=== PATIENT | male | born 2000 | race Caucasian/White ===

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

== ENCOUNTER 2019-10-12 09:46 | Emergency (ER) | payer SELFPAY ==
[2019-10-12 10:35] LABS: Absolute Lymphocytes (CBC) 2.6 K/uL (0.7-4.9); Basophils % 0.3 % (0-1.3); Hematocrit 45.4 % (39.6-49.0); Lymphocytes % 26.1 % (15.3-44.8); MPV 8.7 fL (7.6-11.3); RBC Red Blood Cell Count 5.71 M/uL (4.33-5.43)
[2019-10-12 10:54] LABS: Albumin 3.8 g/dL (3.4-5.0); Bilirubin Direct 0.2 mg/dL (0-0.2); Bilirubin Total 0.9 mg/dL (0.2-1.0); Potassium 4.3 mmol/L (3.5-5.1); Protein, Total 7.7 g/dL (6.4-8.2)
--- NOTE | 2019-10-12 10:58 | ER ---
Nurse's Notes [facility] Name: Carlos Eduardo Aguilar Age: 18 yrs Sex: Male : 2000 Arrival Date: 10/12/2019 Time: 09:48 Bed 20 Private MD: Diagnosis: Diarrhea, unspecified Presentation: 10/11 09:58 Chief complaint: Patient states: lower abdominal pain since 0100 today. Reports ca1 diarrhea. Denies N/V. Coronavirus screen: The patient has NOT traveled to a country currently being monitored by the [facility] within the last 14 days. The patient has NOT had contact with any known and/or suspected case of coronavirus. Ebola Screen: Patient negative for fever greater than or equal to 101.5 degrees Fahrenheit, and additional compatible Ebola Virus Disease symptoms Patient denies exposure to infectious person. Patient denies travel to an Ebola-affected area in the 21 days before illness onset. No symptoms or risks identified at this time. Initial Sepsis Screen: Does the patient meet any 2 criteria? No. Patient's initial sepsis screen is negative. Does the patient have a suspected source of infection? No. Patient's initial sepsis screen is negative. Risk Assessment: Do you want to hurt yourself or someone else? Patient reports no desire to harm self or others. Onset of symptoms was October 12, 2019 at 01:00. Care prior to arrival: None. 09:58 Method Of Arrival: Ambulatory ca1 09:58 Acuity: GABRIELA 3 ca1 Triage Assessment: 10:00 General: Appears in no apparent distress. comfortable, Behavior is calm, cooperative, ca1 appropriate for age. Pain: Complains of pain in right lower quadrant and left lower quadrant Pain does not radiate. Pain currently is 5 out of 10 on a pain scale. Is intermittent. EENT: No signs and/or symptoms were reported regarding the EENT system. Neuro: Level of Consciousness is awake, alert, obeys commands, Oriented to person, place, time, situation, Appropriate for age. Cardiovascular: Heart tones S1 S2 present. Respiratory: Airway is patent Respiratory effort is even, unlabored, Respiratory pattern is regular, symmetrical, Breath sounds are clear bilaterally. GI: Abdomen is round non-distended, Bowel sounds present X 4 quads. Abd is soft and non tender X 4 quads. Reports diarrhea. : No signs and/or symptoms were reported regarding the genitourinary system. Derm: Skin is intact, is healthy with good turgor, Skin is pink, warm \T\ dry. Musculoskeletal: Circulation, motion, and sensation intact. Capillary refill < 3 seconds. Historical: - Allergies: 10:00 No Known Allergies; ca1 - Home Meds: 10:00 None [Active]; ca1 - PMHx: 10:00 None; ca1 - PSHx: 10:00 None; ca1 - Immunization history:: Adult Immunizations not up to date. - Social history:: Smoking status: Patient reports the use of cigarette tobacco products, smokes one pack cigarettes per day. - Family history:: not pertinent. - Hospitalizations: : No recent hospitalization is reported. Screenin:02 Abuse screen: Denies threats or abuse. Denies injuries from another. Nutritional ca1 screening: No deficits noted. Tuberculosis screening: No symptoms or risk factors identified. Fall Risk None identified. Assessment: 10:02 Reassessment: SEE TRIAGE ASSESSMENT. ca1 11:00 Reassessment: Patient appears in no apparent distress at this time. Patient and/or ca1 family updated on plan of care and expected duration. Pain level reassessed. Patient is alert, oriented x 3, equal unlabored respirations, skin warm/dry/pink. Vital Signs: 09:58 BP 153 / 78; Pulse 83; Resp 16 S; Temp 98.6(O); Pulse Ox 100% on R/A; Weight 133.81 kg ca1 (R); Height 6 ft. 0 in. (182.88 cm) (R); Pain 5/10; 11:00 BP 131 / 70; Pulse 72; Resp 17 S; Temp 98.3(O); Pulse Ox 100% on R/A; ca1 09:58 Body Mass Index 40.01 (133.81 kg, 182.88 cm) ca1 ED Course: 09:48 Patient arrived in ED. ag5 09:53 Effie Packer, RN is Primary Nurse. ca1 09:54 Sebastian Song MD is Attending Physician. rn 10:00 Triage completed. ca1 10:00 Arm band placed on right wrist. ca1 10:02 Patient has correct armband on for positive identification. Bed in low position. Call ca1 light in reach. Side rails up X 1. Pulse ox on. NIBP on. Warm blanket given. 10:02 No provider procedures requiring assistance completed. ca1 10:21 Initial lab(s) drawn, by me, sent to lab. Flu and/or RSV swab sent to lab. Inserted ca1 saline lock: 18 gauge in right antecubital area, using aseptic technique. Blood collected. 11:20 IV discontinued, intact, bleeding controlled, No redness/swelling at site. Pressure ca1 dressing applied. Administered Medications: 11:12 Drug: LoMOTIL 2 tabs Route: PO; ca1 11:15 Follow up: Response: Medication administered at discharge. ca1 Outcome: 10:57 Discharge ordered by . rn 11:20 Discharged to home ambulatory. ca1 11:20 Condition: stable 11:20 Discharge instructions given to patient, Instructed on discharge instructions, follow up and referral plans. Demonstrated understanding of instructions, follow-up care. 11:21 Patient left the ED. ca1 Signatures: Sebastian Song MD MD rn Effie Packer RN RN ca1 Jayashree Garcia ag5
--- NOTE | 2019-10-12 10:58 | EDPHYS ---
Physician Documentation [facility] Name: Carlos Eduardo Aguilar Age: 18 yrs Sex: Male : 2000 Arrival Date: 10/12/2019 Time: 09:48 Bed 20 Private MD: ED Physician Sebastian Song HPI: 10/11 10:12 This 18 yrs old Male presents to ER via Ambulatory with complaints of rn Abdominal Pain. 10:12 The patient presents with abdominal pain that is diffuse. Onset: The symptoms/episode rn began/occurred last night. The symptoms do not radiate. Associated signs and symptoms: Pertinent positives: diarrhea, Pertinent negatives: blood in stools, fever, vomiting, vomiting blood. The symptoms are described as achy, crampy. Modifying factors: The symptoms are alleviated by nothing, the symptoms are aggravated by nothing. Severity of pain: At its worst the pain was very mild in the emergency department the pain is unchanged. The patient has not experienced similar symptoms in the past. Reports thinks ate something bad, began last night with diarrhea, non-bloody, no fever/vomiting. Normal appetite. + abd cramping and intermittent abd pain. No current pain. States would not have come in but work is making everyone come in for evaluation prior to returning. . Historical: - Allergies: 10:00 No Known Allergies; ca1 - Home Meds: 10:00 None [Active]; ca1 - PMHx: 10:00 None; ca1 - PSHx: 10:00 None; ca1 - Immunization history:: Adult Immunizations not up to date. - Social history:: Smoking status: Patient reports the use of cigarette tobacco products, smokes one pack cigarettes per day. - Family history:: not pertinent. - Hospitalizations: : No recent hospitalization is reported. ROS: 10:12 Constitutional: Negative for fever, chills, and weight loss, Eyes: Negative for injury, rn pain, redness, and discharge, Cardiovascular: Negative for chest pain, palpitations, and edema, Respiratory: Negative for shortness of breath, cough, wheezing, and pleuritic chest pain, Abdomen/GI: + abd pain/diarrhea, negative for nausea/vomiting : Negative for injury, bleeding, discharge, and swelling, MS/Extremity: Negative for injury and deformity, Skin: Negative for injury, rash, and discoloration, Neuro: Negative for headache, weakness, numbness, tingling, and seizure. Exam: 10:12 Constitutional: This is a well developed, well nourished patient who is awake, alert, rn and in no acute distress. Head/Face: Normocephalic, atraumatic. ENT: MMM Cardiovascular: Regular rate and rhythm. No pulse deficits. Respiratory: Speaking full sentences. No increased work of breathing, no retractions or nasal flaring. Abdomen/GI: soft, non-tender, no rebound MS/ Extremity: Pulses equal, no cyanosis. Neuro: Awake and alert, GCS 15 Vital Signs: 09:58 BP 153 / 78; Pulse 83; Resp 16 S; Temp 98.6(O); Pulse Ox 100% on R/A; Weight 133.81 kg ca1 (R); Height 6 ft. 0 in. (182.88 cm) (R); Pain 5/10; 11:00 BP 131 / 70; Pulse 72; Resp 17 S; Temp 98.3(O); Pulse Ox 100% on R/A; ca1 09:58 Body Mass Index 40.01 (133.81 kg, 182.88 cm) ca1 MDM: 09:54 Patient medically screened. rn 10:56 Differential diagnosis: gastritis, non-specific abd pain, mesenteric adenitis, rn enteritis, food poisoning. Data reviewed: vital signs, nurses notes, lab test result(s), and as a result, I will discharge patient. Counseling: I had a detailed discussion with the patient and/or guardian regarding: the historical points, exam findings, and any diagnostic results supporting the discharge/admit diagnosis, lab results, the need for outpatient follow up, to return to the emergency department if symptoms worsen or persist or if there are any questions or concerns that arise at home. Special discussion: Based on the patient's Hx, exam, and Dx evaluation, there is no indication for emergent surgery or inpatient Tx. It is understood by the patient/guardian that if the Sx's persist or worsen they need to return immediately for re-evaluation. I discussed with the patient/guardian in detail that at this point there is no indication for admission to the hospital. It is understood, however, that if the symptoms persist or worsen the patient needs to return immediately for re-evaluation. ED course: Pt with normal lab w/u, normal cbc, afebrile, no blood in stool, neg flu, will dc home with pcp f/u. . 10/11 10:11 Order name: Basic Metabolic Panel; Complete Time: 10:55 rn 10/11 10:11 Order name: CBC with Diff; Complete Time: 10:44 rn 10/11 10:11 Order name: Hepatic Function; Complete Time: 10:55 rn 10/11 10:11 Order name: Lipase; Complete Time: 10:55 rn 10/11 10:11 Order name: Flu; Complete Time: 10:55 rn 10/11 10:11 Order name: IV Saline Lock; Complete Time: 10:21 rn 10/11 10:11 Order name: Labs collected and sent; Complete Time: 10:21 rn Administered Medications: 11:12 Drug: LoMOTIL 2 tabs Route: PO; ca1 11:15 Follow up: Response: Medication administered at discharge. ca1 Disposition: 10/12/19 10:57 Discharged to Home. Impression: Diarrhea, unspecified. - Condition is Stable. - Discharge Instructions: Diarrhea, Adult. - Medication Reconciliation Form, Thank You Letter, Antibiotic Education, Prescription Opioid Use, Work release form form. - Follow up: Private Physician; When: As needed; Reason: Recheck today's complaints, Re-evaluation by your physician. - Problem is new. - Symptoms have improved. Signatures: Dispatcher [employer] EDMS Sebastian Song MD MD rn Acob, JUSTICE Chou RN ca1 Corrections: (The following items were deleted from the chart) 10:15 10:12 Constitutional: This is a well developed, well nourished patient who is awake, rn alert, and in no acute distress. Head/Face: Normocephalic, atraumatic. ENT: MMM rn 11:21 10:57 10/12/2019 10:57 Discharged to Home. Impression: Diarrhea, unspecified. Condition ca1 is Stable. Discharge Instructions: Diarrhea, Adult. Forms are Medication Reconciliation Form, Thank You Letter, Antibiotic Education, Prescription Opioid Use. Follow up: Private Physician; When: As needed; Reason: Recheck today's complaints, Re-evaluation by your physician. Problem is new. Symptoms have improved. rn
[2019-10-12] MEDS ORDERED: DIPHENOX/ATROP SULF 1 TAB PO ONE (11:18)
[2019-10-12 11:30] VITALS: O2SAT 100
[2019-10-12 11:32] VITALS: BP 131/70; TEMP 98.3
== END 2019-10-12 11:21 | disposition home or self-care (01) ==
LOC: ER 09:46
DX: R19.7 Diarrhea, unspecified (principal); F17.210 Nicotine dependence, cigarettes, uncomplicated
CPT/HCPCS: 36415; 80048; 80076; 83690; 85025; 87804; 99284

== ENCOUNTER 2022-07-20 09:42 | Emergency (ER) | payer BC ==
[2022-07-20] MEDS ORDERED: dexAMETHasone 10 MG/ML VIAL ONE (10:11)
--- NOTE | 2022-07-20 10:12 | EDPHYS ---
Physician Documentation [facility] Name: Carlos Eduardo Aguilar Age: 21 yrs Sex: Male : 2000 Arrival Date: 07/20/2022 Time: 09:46 Bed DIS9 Private MD: ED Physician Troy Mcduffie HPI: 07/20 10:08 This 21 yrs old Male presents to ER via Ambulatory with complaints of Sore Throat, ms3 Fever. 10:08 The patient presents with sore throat. The patient describes throat pain as burning. ms3 Onset: The symptoms/episode began/occurred yesterday. Severity of symptoms: At their worst the symptoms were severe, in the emergency department the symptoms are unchanged. Modifying factors: The symptoms are alleviated by nothing, the symptoms are aggravated by swallowing, The patient has had contact with sick Niece. Associated signs and symptoms: Pertinent positives: fever, Pertinent negatives cough. Historical: - Allergies: 10:02 No Known Allergies; ss - Home Meds: 10:02 None [Active]; ss - PMHx: 10:02 Asthma; ss - PSHx: 10:02 None; ss - Immunization history:: Adult Immunizations up to date. - Social history:: Smoking status: Patient denies any tobacco usage or history of. ROS: 10:08 Constitutional: Negative for fever, and chills. ms3 10:08 Cardiovascular: Negative for chest pain, and palpitations. Respiratory: Negative for shortness of breath, cough, wheezing, and pleuritic chest pain, Abdomen/GI: Negative for abdominal pain, nausea, vomiting, diarrhea, and constipation, MS/Extremity: Negative for injury and deformity, Skin: Negative for injury, rash, and discoloration. 10:08 ENT: Positive for sore throat. 10:08 All other systems are negative. Exam: 10:08 Constitutional: This is a well developed, well nourished patient who is awake, alert, ms3 and in no acute distress. Head/Face: Normocephalic, atraumatic. Neck: Trachea midline, no cervical lymphadenopathy. Supple, full range of motion without nuchal rigidity, or vertebral point tenderness. No Meningismus. 10:08 Respiratory: Lungs have equal breath sounds bilaterally, clear to auscultation and percussion. No rales, rhonchi or wheezes noted. No increased work of breathing, no retractions or nasal flaring. Abdomen/GI: Soft, non-tender, with normal bowel sounds. No distension or tympany. No guarding or rebound. No evidence of tenderness throughout. Skin: Warm, dry with normal turgor. Normal color with no rashes, no lesions, and no evidence of cellulitis. MS/ Extremity: Pulses equal, no cyanosis. Neurovascular intact. Full, normal range of motion. 10:08 ENT: Posterior pharynx: Tonsils: bilaterally enlarged, with erythema, with exudate, Uvula: midline, swelling, that is moderate, erythema, that is marked, exudate, that is moderate, peritonsillar mass, is not appreciated, pooling of secretions, is not appreciated. Vital Signs: 10:00 BP 135 / 80; Pulse 110; Resp 17; Temp 98.6(O); Pulse Ox 97% on R/A; Weight 145.15 kg; ss Height 6 ft. 0 in. (182.88 cm); Pain 0/10; 10:00 Body Mass Index 43.40 (145.15 kg, 182.88 cm) ss MDM: 10:05 Patient medically screened. ms3 10:08 Data reviewed: vital signs, nurses notes, and as a result, I will discharge patient. ms3 Counseling: I had a detailed discussion with the patient and/or guardian regarding: the historical points, exam findings, and any diagnostic results supporting the discharge/admit diagnosis, the need for outpatient follow up, to return to the emergency department if symptoms worsen or persist or if there are any questions or concerns that arise at home. Administered Medications: 10:28 Drug: Decadron (dexamethasone) 10 mg Route: IM; Site: right deltoid; ap3 10:28 Drug: AZITHromycin 500 mg Route: PO; ap3 Disposition Summary: 07/20/22 10:11 Discharge Ordered Location: Home ms3 Condition: Stable ms3 Diagnosis - Streptococcal pharyngitis ms3 Followup: ms3 - With: Alvin Lester DO - When: 2 - 3 days - Reason: Recheck today's complaints Discharge Instructions: - Discharge Summary Sheet ms3 - Strep Throat, Adult ms3 Forms: - Medication Reconciliation Form ms3 - Thank You Letter ms3 - Work release form ap3 - Antibiotic Education ms3 - Prescription Opioid Use ms3 Prescriptions: - azithromycin 500 mg Oral tablet - take 1 tablet by ORAL route once daily for 3 days Begin taking on 07/21/2022; 4 ms3 tablet; Refills: 0, Product Selection Permitted Signatures: Elizabeth Emerson, RN RN ss Flavia Forrest RN RN ap3 Troy Mcduffie DO DO ms3
--- NOTE | 2022-07-20 10:12 | ER ---
Nurse's Notes [facility] Name: Carlos Eduardo Aguilar Age: 21 yrs Sex: Male : 2000 Arrival Date: 07/20/2022 Time: 09:46 Bed DIS9 Private MD: Diagnosis: Streptococcal pharyngitis Presentation: 07/20 10:00 Chief complaint: Patient states: sore throat and fever that began yesterday. ss Coronavirus screen: Client denies travel out of the [place] in the last 14 days. Ebola Screen: Patient denies exposure to infectious person. Patient denies travel to an Ebola-affected area in the 21 days before illness onset. Initial Sepsis Screen: Does the patient meet any 2 criteria? No. Patient's initial sepsis screen is negative. Does the patient have a suspected source of infection? No. Patient's initial sepsis screen is negative. Risk Assessment: Do you want to hurt yourself or someone else? Patient reports no desire to harm self or others. Onset of symptoms was July 19, 2022. 10:00 Method Of Arrival: Ambulatory ss 10:00 Acuity: GABRIELA 4 ss Triage Assessment: 10:37 General: Appears in no apparent distress. comfortable, Behavior is calm, cooperative, ap3 appropriate for age. Historical: - Allergies: 10:02 No Known Allergies; ss - Home Meds: 10:02 None [Active]; ss - PMHx: 10:02 Asthma; ss - PSHx: 10:02 None; ss - Immunization history:: Adult Immunizations up to date. - Social history:: Smoking status: Patient denies any tobacco usage or history of. Screenin:36 [facility] ED Fall Risk Assessment (Adult) History of falling in the last 3 months, ap3 including since admission No falls in past 3 months (0 pts). Abuse screen: Denies threats or abuse. Nutritional screening: No deficits noted. Tuberculosis screening: No symptoms or risk factors identified. Assessment: 10:36 Pain: Complains of pain in throat. Respiratory: Airway is patent Respiratory effort is ap3 even, unlabored, Breath sounds are clear. EENT: Throat is reddened has enlarged tonsils bilaterally Reports pain when swallowing. Vital Signs: 10:00 BP 135 / 80; Pulse 110; Resp 17; Temp 98.6(O); Pulse Ox 97% on R/A; Weight 145.15 kg; Height 6 ft. 0 in. (182.88 cm); Pain 0/10; 10:00 Body Mass Index 43.40 (145.15 kg, 182.88 cm) ED Course: 09:46 Patient arrived in ED. mr 09:49 Flavia Forrest RN is Primary Nurse. ap3 09:52 Khari Piña PA is PHCP. [facility] 09:52 Troy Mcduffie DO is Attending Physician. [facility] 10:02 Triage completed. ss 10:02 Arm band placed on right wrist. ss 10:11 Alvin Lester DO is Referral Physician. ms3 10:36 Patient has correct armband on for positive identification. Adult w/ patient. ap3 10:37 No provider procedures requiring assistance completed. Patient did not have IV access ap3 during this emergency room visit. Administered Medications: 10:28 Drug: Decadron (dexamethasone) 10 mg Route: IM; Site: right deltoid; ap3 10:28 Drug: AZITHromycin 500 mg Route: PO; ap3 Medication: 10:37 VIS not applicable for this client. ap3 Outcome: 10:11 Discharge ordered by MD. ms3 10:37 Discharged to home ambulatory. ap3 10:37 Condition: good 10:37 Discharge instructions given to patient, Instructed on discharge instructions, follow up and referral plans. Demonstrated understanding of instructions, follow-up care, medications, Prescriptions given X 1. 10:37 Patient left the ED. ap3 Signatures: Khari Piña PA PA [facility] [place] [facility] [place] Elizabeth Emerson RN RN Flavia Forrest RN RN ap3 Troy Mcduffie DO DO ms3
[2022-07-20] MEDS ORDERED: AZITHROMYCIN 250 MG TAB ONE (10:26)
[2022-07-20 10:42] VITALS: BP 135/80; TEMP 98.6; O2SAT 97
== END 2022-07-20 10:37 | disposition home or self-care (01) ==
LOC: ER 09:42
DX: J02.0 Streptococcal pharyngitis (principal)
CPT/HCPCS: 96372; 99283; Q0144; J1100